=== PATIENT | female | born 1990 | race African-American/Black ===

== ENCOUNTER 2019-12-10 09:07 | Outpatient (CLI) | payer OTHER ==
--- NOTE | 2019-12-10 13:29 | ULT ---
ULTRASOUND OBSTETRICAL COMPLETE: DATE: 12/10/2019 HISTORY: 29-year-old female. Evaluate anatomy. FINDINGS: number: cisneros lie: Cephalic Maternal cervix: 4 cm. Closed. Placenta: Posterior. No previa. Amniotic fluid volume: REE = 10 cm heart rate: 150 bpm The following anatomy is visualized, with no evidence of anomalies: Head, cerebellum, lateral ventricles, four-chamber heart, stomach, kidneys, cord insertion, bladder, cervical spine, thoracic spine, lumbar spine, sacrum, nose and lips, upper extremities, lower extremities, and three-vessel cord. biometry: Biparietal diameter (BPD): 4.4 cm 19 w 2 d Head circumference (HC): 17.0 cm 19 w 5 d Abdominal circumference (AC): 14.3 cm 19 w 5 d Femur length (FL): 3.4 cm 20 w 6 5 d Average ultrasound age (AUA): 19 w 6 d Estimated date of delivery (KHLOE): 04/29/2020 Estimated weight (EFW): 328 g +/- 48 g IMPRESSION: 1) Live 2nd trimester intrauterine gestation. 2) Estimated gestational age of 19 weeks, 6 days 3) cephalic lie. 4) no anatomic abnormality identified.
== END 2019-12-10 09:08 | disposition home or self-care (01) ==
LOC: BICULT 09:07
PROVIDERS: ATTEND Family Medicine
DX: Z34.82 Encounter for supervision of other normal pregnancy, second trimester (principal); Z3A.19 19 weeks gestation of pregnancy
CPT/HCPCS: 76805

== ENCOUNTER 2020-04-16 15:07 | Inpatient (IN) | payer OTHER ==
[2020-04-16] MEDS ORDERED: Promethazine HCl 25 MG/ML VIAL IM PRN (15:49)
[2020-04-16] MEDS ORDERED: Butorphanol Tartrate 1 MG/ML VIAL SLOW IVP PRN (15:49)
[2020-04-16] MEDS ORDERED: Lidocaine 1% (PF) 30 ML VIAL SC PRN (15:49)
[2020-04-16] MEDS ORDERED: Ondansetron PF 4 MG/2 ML Vial IVP PRN (15:49)
[2020-04-16] MEDS ORDERED: Penicillin G Potassium 5 MILL.UNITS in Sodium Chloride 0.9% 100 ML IVPB SCH (15:49)
[2020-04-16] MEDS ORDERED: HYDROcodone/Acetaminophen 5/325 mg Tablet PO PRN ×2 (15:49)
[2020-04-16] MEDS ORDERED: hydrALAZINE 20 MG/ML VIAL SLOW IVP PRN (15:49)
[2020-04-16] MEDS ORDERED: Ibuprofen 800 MG TAB PO PRN (15:49)
[2020-04-16] MEDS ORDERED: Lactated Ringer's 1,000 ML IV SCH (15:49)
[2020-04-16] MEDS ORDERED: NS w/ Oxytocin 10 units 500 ML IV SCH (15:49)
[2020-04-16 15:59] VITALS: BMI 37.0
[2020-04-16] MEDS ORDERED: Penicillin G Potassium 5 MILL.UNITS VIAL ONE (16:01)
[2020-04-16] MEDS: Lactated Ringer's 1,000 ML IV SCH (16:11)
[2020-04-16 16:16] LABS: Hemoglobin 9.7 g/dL (12.0-16.0); Mean Corpuscular HGB CONC 33.2 g/dL (32.0-36.0); Mean Corpuscular Hemoglobin 23.4 pg (27.0-31.0); Mean Corpuscular Volume 70.5 fL (78.0-98.0); Mean Platelet Volume 10.5 fL (7.4-10.4); Platelet Count 308 thou/uL (130-400); RBC Distribution Width 16.7 % (11.5-14.5); Red Blood Cell (RBC) Count 4.14 mill/uL (4.20-5.40); White Blood Cell (WBC) Count 11.7 thou/uL (4.8-10.8)
[2020-04-16 16:46] LABS: HBSAg Index 0.22 S/CO (0-0.99); Hep B Surf Ag Non-Reactive S/CO (NonReactive); Syphilis Antibody Nonreactive (Nonreactive); Syphilis Antibody Index 0.06 S/CO (<1.00 Non-Reactive)
[2020-04-16] MEDS: Penicillin G 2.5 MILL.units 2.5 MILL.UNITS in Premix Bag 1 BAG IVPB SCH (19:48)
[2020-04-16] MEDS: NS / Oxytocin 40 units/1000ml 1,000 ML IV PRN ×2 (21:06→22:03)
[2020-04-16 22:58] LABS: SARS-CoV-2 MS2 Positive; SARS-CoV-2 N Gene Negative; SARS-CoV-2 S Gene Negative; SARS-CoV-2 by NAA Not Detected (NotDetected); SARS-CoV-2 orf1ab Negative
[2020-04-17] MEDS ORDERED: Milk Of Magnesia 30 ML UDCUP PO PRN (01:13)
[2020-04-17] MEDS ORDERED: HYDROcodone/Acetaminophen 5/325 mg Tablet PO PRN (01:13)
[2020-04-17] MEDS ORDERED: NS / Oxytocin 40 units/1000ml 1,000 ML IV SCH (01:13)
[2020-04-17] MEDS ORDERED: Benzocaine-Menthol 82.5 ML CAN TOP PRN (01:13)
[2020-04-17] MEDS ORDERED: Ondansetron PF 4 MG/2 ML Vial IVP PRN (01:13)
[2020-04-17] MEDS ORDERED: Bisacodyl 10 MG SUPP PR PRN (01:13)
[2020-04-17] MEDS ORDERED: hydrALAZINE 20 MG/ML VIAL SLOW IVP PRN (01:13)
[2020-04-17] MEDS ORDERED: Lanolin Ointment 7 GM TUBE TOP PRN (01:13)
[2020-04-17] MEDS ORDERED: Adacel (T-DAP) 0.5 ML SYRINGE IM ONE (01:13)
[2020-04-17] MEDS ORDERED: Docusate Calcium (SURFAK) 240 MG CAP PO SCH (01:30)
[2020-04-17] MEDS: HYDROcodone/Acetaminophen 5/325 mg Tablet PO PRN ×2 (01:43→14:17)
[2020-04-17] MEDS: Ibuprofen 800 MG TAB PO SCH ×4 (01:47→21:30)
[2020-04-17] MEDS: Lactated Ringer's 1,000 ML IV SCH (01:48)
[2020-04-17] MEDS: Penicillin G 2.5 MILL.units 2.5 MILL.UNITS in Premix Bag 1 BAG IVPB SCH (01:48)
[2020-04-17] MEDS: Prenatal Vitamin 1 TAB PO SCH (08:24)
[2020-04-17] MEDS: Ferrous Sulfate 325 MG TAB PO SCH ×2 (08:24→17:19)
[2020-04-17] MEDS: Docusate Calcium (SURFAK) 240 MG CAP PO SCH (21:31)
[2020-04-18] MEDS: Ibuprofen 800 MG TAB PO SCH ×2 (05:10→14:38)
[2020-04-18] MEDS: Prenatal Vitamin 1 TAB PO SCH (09:02)
[2020-04-18] MEDS: Docusate Calcium (SURFAK) 240 MG CAP PO SCH (09:02)
[2020-04-18] MEDS: Ferrous Sulfate 325 MG TAB PO SCH (09:03)
[2020-04-18 09:20] VITALS: BP 125/67; TEMP 98.6
== END 2020-04-18 17:00 | disposition home or self-care (01) | DRG 807 ==
LOC: L&D/OP 15:07 → L&D 16:25 → 3SW 04-17 01:26
PROVIDERS: ADMIT Family Medicine; ATTEND Family Medicine
PROC: 10E0XZZ Delivery of Products of Conception, External Approach (ICD-10-PCS; principal; 2020-04-16)
DX: O69.81X0 Labor and delivery complicated by cord around neck, without compression, not applicable or unspecified (principal); Z37.0 Single live birth; Z3A.38 38 weeks gestation of pregnancy; Z20.828 Contact with and (suspected) exposure to other viral communicable diseases
CPT/HCPCS: 36415; 85027; 86780; 86850; 86900; 86901; 87340; 87635; 99285; J2540; J2590; U0003

== ENCOUNTER 2020-04-25 07:21 | Inpatient (IN) | payer OTHER ==
[2020-04-25 08:17] LABS: #Eosinphils 0.1 thou/uL (0.0-0.7); #Lymphocytes 1.2 thou/uL (1.20-3.40); #Monocytes 0.8 thou/uL (0.11-0.59); #Neutrophils 9.1 thou/uL (1.40-6.50); %Basophils 0.1 % (0.0-1.0); %Eosinophils 0.7 % (0.0-10.0); %Lymphocytes 10.4 % (21.0-51.0); %Monocytes 6.7 % (0.0-10.0); Hemoglobin 10.1 g/dL (12.0-16.0); Mean Corpuscular HGB CONC 33.1 g/dL (32.0-36.0); Mean Corpuscular Hemoglobin 23.9 pg (27.0-31.0); Mean Corpuscular Volume 72.2 fL (78.0-98.0); Mean Platelet Volume 11.2 fL (7.4-10.4); Platelet Count 205 thou/uL (130-400); Red Blood Cell (RBC) Count 4.25 mill/uL (4.20-5.40); White Blood Cell (WBC) Count 11.1 thou/uL (4.8-10.8)
[2020-04-25 08:30] LABS: ALT (SGPT) 30 U/L (8-55); AST (SGOT) 31 U/L (5-34); Albumin 3.6 g/dL (3.5-5.0); Alkaline Phosphatase 113 U/L (40-110); Anion Gap 16 mmol/L (10-20); BUN (Urea Nitrogen) 7 mg/dL (7.0-18.7); Bilirubin, Total 0.7 mg/dL (0.2-1.2); CK (CPK) 126 U/L (29-168); Calc. Creatinine Clearance 0 mL/min (70-130); Calcium 8.7 mg/dL (7.8-10.44); Carbon Dioxide 20 mmol/L (22-29); Chloride 108 mmol/L (98-107); Estimated GFR-MDRD Greater than 90; Globulin 3.5 g/dL (2.4-3.5); Glucose 85 mg/dL (70-105); Potassium 3.9 mmol/L (3.5-5.1); Protein, Total 7.1 g/dL (6.0-8.3); Sodium 140 mmol/L (136-145)
[2020-04-25 08:48] LABS: CKMB 1.4 ng/mL (0-6.6)
--- NOTE | 2020-04-25 08:50 | RAD ---
Portable frontal chest radiograph: 04/25/2020 COMPARISON: 11/18/2015 HISTORY: Palpitations, shortness of breath FINDINGS: Pulmonary vascular congestion is noted. There is linear interstitial density in the left ba se with probable associated mild nonspecific left basilar airspace disease. IMPRESSION: Pulmonary vascular congestion with nonspecific mild right basilar airspace disease. Findi ngs could be on the basis of infectious pneumonitis or edema.
[2020-04-25] MEDS ORDERED: Iopamidol-370 76% 500 ML 1 ML ONE (09:23)
--- NOTE | 2020-04-25 10:32 | CT ---
CT PULMONARY ANGIOGRAM WITH IV CONTRAST AND 3D POSTPROCESSING: Date: 04/25/2020 HISTORY: Shortness of breath. Patient had an uncomplicated vaginal delivery on 04/16/2020. FINDINGS: There is good contrast opacification of the pulmonary arterial vasculature without filling defects to suggest pulmonary embolism. The thoracic aorta is well opacified without aneurysm or dissection. Patchy multifocal ground-glass infiltrates are noted bilaterally. There are small bilateral pleural e ffusions. The bone structures are unremarkable. IMPRESSION: 1. No CT evidence of pulmonary embolism. 2. Small bilateral pleural effusions. 3. Patchy multifocal bilateral ground-glass infiltrates. Correlate for COVID-19 infection. POS: [facility]
[2020-04-25] MEDS ORDERED: Furosemide 40 MG/4 ML VIAL ONE (10:49)
[2020-04-25] MEDS ORDERED: Labetalol HCl 100 MG/20 ML VIAL ONE (10:49)
[2020-04-25] MEDS ORDERED: Magnesium Sulfate 4 GM in Sodium Chloride 0.9% 250 ML 250 ML IVPB SCH (11:00)
[2020-04-25 11:31] LABS: SARS-CoV-2 NAA Rapid Test Not Detected (NotDetected)
[2020-04-25 11:44] LABS: Troponin I 0.029 ng/mL (< 0.028)
[2020-04-25 12:02] LABS: Bacteria/HPF None Seen HPF (None Seen); Bilirubin Negative (Negative); Blood, Urine Trace (Negative); Clarity Clear (Clear); Glucose, Urine (Dipstick) Normal (Negative); Ketone, Urine Negative (Negative); Leukocyte Negative Leu/uL (Negative); Nitrite Negative (Negative); Protein, Urine (Dipstick) Negative (Neg-Trace); RBC/HPF 0-3 HPF (0-3); Specific Gravity, Urine 1.011 (1.002-1.036); Squamous Epithelial 0-3 HPF (0-3); Urobilinogen Normal mg/dL (Less than 2); WBC/HPF None Seen HPF (0-3)
[2020-04-25] MEDS ORDERED: Magnesium Sulfate 20 gm/500 ml 20 GM/500 ML BAG ONE (13:14)
[2020-04-25] MEDS ORDERED: Calcium Gluc 4.6 MEQ/10 ML (100 MG/ML) SLOW IVP PRN (13:38)
[2020-04-25] MEDS ORDERED: hydrALAZINE 20 MG/ML VIAL SLOW IVP PRN (13:41)
[2020-04-25] MEDS ORDERED: Magnesium Sulfate 20 GM/WATER 500 ML BAG IVPB SCH (13:45)
[2020-04-25] MEDS ORDERED: Magnesium Sulfate 20 gm/500 ml 20 GM/500 ML BAG IVPB SCH (13:45)
[2020-04-25 14:17] LABS: Troponin I 0.016 ng/mL (< 0.028)
[2020-04-25 15:57] VITALS: BMI 37.5
--- NOTE | 2020-04-25 21:15 | PDOC.EVN ---
Event Note - Event Note Event Note: Echo with normal LVEF. No evidence of peripartum cardiomyopathy. The slight elevation in BNP, and troponins explained by rapid fluid shift associated with preeclampsia. I have explained findings with her.
[2020-04-25] MEDS: Acetaminophen 500 MG TAB PO PRN (21:31)
[2020-04-26] MEDS: Acetaminophen 500 MG TAB PO PRN (07:32)
[2020-04-27 17:13] VITALS: BP 146/84; TEMP 98.4
== END 2020-04-27 18:40 | disposition home or self-care (01) | DRG 776 ==
LOC: ERS 07:21 → L&D 12:52 → 3SW 04-26 15:17
PROVIDERS: ADMIT Family Medicine; ATTEND Family Medicine
DX: O14.95 Unspecified pre-eclampsia, complicating the puerperium (principal); Z20.828 Contact with and (suspected) exposure to other viral communicable diseases
CPT/HCPCS: 36415; 51702; 71045; 71275; 80053; 81003; 81015; 82550; 82553; 83735; 83880; 84484; 85025; 85379; 93005; 93306; 96365; 96375; J1940; J3475; J7050; Q9967; U0002